=== PATIENT | female | born 1990 | race Two or more races ===

== ENCOUNTER 2023-12-25 08:10 | Inpatient (IN) | payer OTHER ==
[~2023-12-25] VITALS: Ht 157.5 cm; Wt 73.0 kg
[2023-12-25] MEDS ORDERED: AMPICILLIN SODIUM 2,000 MG VIAL ONE (09:08)
[2023-12-25] MEDS ORDERED: CEFAZOLIN SODIUM 1,000 MG VIAL ONE (09:20)
[2023-12-25] MEDS ORDERED: CEFAZOLIN SODIUM 1,000 MG VIAL IV SCH (09:20)
[2023-12-25] MEDS ORDERED: PRENATABS RX T1 EACH PO (09:34)
[2023-12-25 09:38] LABS: PH,URINE 6.5 (5.0-8.0); URINE APPEARANCE Cloudy; URINE BILIRRUBIN Negative (NEGATIVE); URINE BLOOD NHT; URINE COLOR Dark Yellow; URINE GLUCOSE Negative (NEGATIVE); URINE KETONE Trace (NEGATIVE); URINE LEUKOCYTE Trace; URINE NITRATE Negative; URINE PROTEIN Trace (NEGATIVE)
[2023-12-25 09:39] LABS: HEMATOCRIT 29.6 % (36.0-45.00); HEMOGLOBIN 10.3 g/dL (12.0-15.00); MEAN CELL VOLUME 92.6 fL (80.00-100.00); MEAN CORPUSCULAR HEMOGLOBIN 32.2 pg (27.00-32.0); MEAN CORPUSCULAR HGB CONC 34.8 g/dl (32.0-36.0); PLATELET COUNT 247 K/uL (150-450); RED BLOOD COUNT 3.19 M/uL (4.00-6.00); RED CELL DISTRIBUTION WIDTH 16.2 % (11.5-14.5)
[2023-12-25 09:41] LABS: URINE BACTERIA 726.8 uL (0.0-1933); URINE EPITHELIAL CELLS 135.7 uL (0.0-38.8); URINE RBC 94.3 uL (0.0-20.8); URINE WBC 77.9 uL (0.0-23.2)
[2023-12-25 09:57] LABS: URINE CAST 0.61 uL (0.0-1.40)
[2023-12-25 10:18] LABS: INR 0.94; PROTHROMBIN TIME 9.9 SECONDS (9.0-11.5)
[2023-12-25] MEDS ORDERED: OXYTOCIN 20 UNITS/500ML RL PIGGYBAG IV ONE (11:36)
[2023-12-25] MEDS ORDERED: OXYTOCIN 20 UNITS/500ML RL PIGGYBAG IV SCH (11:45)
[2023-12-25] MEDS ORDERED: MEPERIDINE HCL/PF 50 MG/ML VIAL IV STA (16:01)
[2023-12-25] MEDS ORDERED: PROMETHAZINE HCL 25 MG/ML AMPUL IV STA (16:02)
[2023-12-25] MEDS ORDERED: OXYTOCIN 20 UNITS/1000ML RL PIGGYBAG IV ONE (16:05)
[2023-12-25] MEDS ORDERED: ERYTHROMYCIN BASE 1 GM TUBE OP ONE ×2 (16:05→18:48)
[2023-12-25] MEDS ORDERED: CHLORHEXIDINE GLUCONATE 120 ML BOTTLE TOP ONE (16:06)
[2023-12-25] MEDS ORDERED: PROMETHAZINE HCL 25 MG/ML AMPUL ONE (16:06)
[2023-12-25] MEDS ORDERED: OXYTOCIN 10 UNITS/ML VIAL ONE ×2 (18:48→22:34)
[2023-12-25] MEDS ORDERED: KETOROLAC TROMETHAMINE 60 MG VIAL IM STA (20:52)
[2023-12-25] MEDS ORDERED: RINGERS SOLUTION,LACTATED 1,000 ML IV SCH (21:00)
[2023-12-25] MEDS ORDERED: PROMETHAZINE HCL 25 MG/ML AMPUL IM PRN (21:00)
[2023-12-25] MEDS ORDERED: ERYTHROMYCIN BASE 1 GM TUBE OP SCH (21:00)
[2023-12-25] MEDS ORDERED: MEPERIDINE HCL/PF 50 MG/ML VIAL IM PRN (21:00)
[2023-12-25] MEDS ORDERED: CHLORHEXIDINE GLUCONATE 120 ML BOTTLE TOP SCH (21:00)
[2023-12-25] MEDS ORDERED: OXYTOCIN 1,000 ML IV SCH (21:00)
[2023-12-25 21:53] LABS: ABG PH 7.285 (7.35-7.45); ABG pCO2 44.8 mmHg (35-45); BASE EXCESS -5.8 mmol/l; BICARBONATE 20.8 mmol/l (23-25); SaO2 46.1 %; Tco2 22.2 mmol/l
[2023-12-25 22:01] LABS: ABG PO2 29.6 mmHg (80-100); o2 21 %
[2023-12-25] MEDS ORDERED: MORPHINE SULFATE 4 MG/ML VIAL IV ONE (22:15)
[2023-12-25] MEDS ORDERED: KETOROLAC TROMETHAMINE 60 MG VIAL IM ONE (22:34)
[2023-12-26 01:51] LABS: HEMATOCRIT 28.1 % (36.0-45.00); HEMOGLOBIN 9.5 g/dL (12.0-15.00); MEAN CELL VOLUME 93.3 fL (80.00-100.00); MEAN CORPUSCULAR HEMOGLOBIN 31.7 pg (27.00-32.0); PLATELET COUNT 230 K/uL (150-450); RED BLOOD COUNT 3.01 M/uL (4.00-6.00); RED CELL DISTRIBUTION WIDTH 15.7 % (11.5-14.5)
[2023-12-26] MEDS ORDERED: OxyCODONE HCL/APAP UD (PERCOCET) PO PRN (09:00)
[2023-12-26] MEDS ORDERED: FERROUS SULFATE 325 MG TABLET.EC PO SCH (15:22)
[2023-12-26] MEDS ORDERED: IBUprofen 600 MG TABLET PO PRN (15:45)
[2023-12-26] MEDS ORDERED: PNV,CALCIUM 72/IRON/FOLIC ACID 1 TAB TABLET PO SCH (17:00)
[2023-12-26] MEDS ORDERED: AMOXICILLIN/POTASSIUM CLAV 500 MG TABLET PO SCH (17:00)
== END 2023-12-27 15:40 | disposition home or self-care (01) | DRG 788 ==
LOC: LDR 08:10 → O/R 19:50 → OB/GYN 21:06
PROVIDERS: ADMIT Obstetrics & Gynecology; ATTEND Obstetrics & Gynecology
PROC: 4A1HXCZ Monitoring of Products of Conception, Cardiac Rate, External Approach (ICD-10-PCS; 2023-12-25)
PROC: 10D00Z1 Extraction of Products of Conception, Low, Open Approach (ICD-10-PCS; principal; 2023-12-25 23:00)
DX: O62.1 Secondary uterine inertia (principal); O36.63X0 Maternal care for excessive fetal growth, third trimester, not applicable or unspecified; Z3A.39 39 weeks gestation of pregnancy; Z37.0 Single live birth; Z20.822 Contact with and (suspected) exposure to COVID-19

== ENCOUNTER 2024-10-27 13:40 | Inpatient (IN) | payer OTHER ==
[~2024-10-27] VITALS: Ht 152.4 cm; Wt 82.1 kg
[~2024-10-27 13:40] MED LIST: PRENATABS RX T1 EACH PO
[2024-10-27 14:02] LABS: BASO % 0.3 % (0.1-1.2); EOS # 0.14 (0.04-0.54); EOS % 2.2 % (0.7-7.0); HEMATOCRIT 29.6 % (34.1-44.9); HEMOGLOBIN 9.7 g/dL (11.2-15.7); LYMPH # 1.09 (1.18-3.74); LYMPH % 17.2 % (19.3-53.1); MEAN CORPUSCULAR HEMOGLOBIN 28.9 pg (25.6-32.2); MONO % 7.9 % (4.7-12.5); NEUT # 4.56 (1.56-6.13); NEUT % 72.1 % (34.0-71.1); PLATELET COUNT 244 K/uL (163-369); RED BLOOD COUNT 3.36 M/uL (3.93-5.22); RED CELL DISTRIBUTION WIDTH 19.2 % (11.6-14.4)
[2024-10-27 14:25] LABS: PH,URINE 5.5 (5.0-8.0); URINE APPEARANCE Cloudy; URINE BILIRRUBIN Negative (NEGATIVE); URINE BLOOD Negative; URINE COLOR Yellow; URINE GLUCOSE Negative (NEGATIVE); URINE KETONE Negative (NEGATIVE); URINE LEUKOCYTE Trace; URINE NITRATE Negative; URINE PROTEIN Trace (NEGATIVE); URINE UROBILINOGEN 0.2 E.U./dl
[2024-10-27 14:29] LABS: URINE BACTERIA 764.8 uL (0.0-1933); URINE RBC 7.2 uL (0.0-20.8); URINE WBC 36.5 uL (0.0-23.2)
[2024-10-27 14:45] LABS: INR 0.95; PARTIAL THROMBOPLASTIN TIME 24.3 SECONDS (22.0-34.0); PROTHROMBIN TIME 10.4 SECONDS (9.0-11.5)
[2024-10-27 15:08] LABS: RH POSITIVE
[2024-10-27 15:37] LABS: URINE CAST 0.58 uL (0.0-1.40); URINE EPITHELIAL CELLS > 201.7 uL (0.0-38.8); URINE MUCUS SCANT
[2024-10-28 10:04] VITALS: BP 111/68
[2024-10-28] MEDS ORDERED: PRENATAL + DHA1 EAC1 PO (10:16)
[2024-10-28] MEDS ORDERED: IRON325 MG PO (10:17)
[2024-10-28 10:18] VITALS: BP 111/68
[2024-10-28] MEDS ORDERED: RINGERS SOLUTION,LACTATED 1,000 ML IV SCH ×2 (11:15→16:30)
[2024-10-28 11:41] VITALS: BP 97/64; O2SAT 100
[2024-10-28] MEDS ORDERED: OXYTOCIN 10 UNITS/ML VIAL ONE ×2 (12:42→18:54)
[2024-10-28] MEDS ORDERED: ERYTHROMYCIN BASE OPHT 1GM EACH TUBE OP ONE (12:42)
[2024-10-28] MEDS ORDERED: MORPHINE SULFATE 4 MG/ML VIAL IV ONE ×2 (16:15→17:15)
[2024-10-28] MEDS ORDERED: KETOROLAC TROMETHAMINE 60 MG VIAL IM STA (16:27)
[2024-10-28] MEDS ORDERED: OXYTOCIN 1,000 ML IV SCH (16:30)
[2024-10-28] MEDS ORDERED: CHLORHEXIDINE GLUCONATE 120 ML BOTTLE TP SCH (16:30)
[2024-10-28] MEDS ORDERED: ONDANSETRON HCL 2 MG/ML VIAL IV ONE (17:30)
[2024-10-28] MEDS ORDERED: ONDANSETRON HCL 2 MG/ML VIAL ONE (17:31)
[2024-10-28] MEDS ORDERED: KETOROLAC TROMETHAMINE 60 MG VIAL IM ONE ×2 (18:22→18:40)
[2024-10-28] MEDS ORDERED: SUGAMMADEX SODIUM 200 MG/2 ML VIAL IV ONE (19:25)
[2024-10-28 19:27] VITALS: BP 114/71
[2024-10-28 19:41] LABS: BASO % 0.2 % (0.1-1.2); EOS # 0.07 (0.04-0.54); EOS % 0.8 % (0.7-7.0); HEMATOCRIT 27.4 % (34.1-44.9); LYMPH # 0.82 (1.18-3.74); LYMPH % 8.9 % (19.3-53.1); MEAN CORPUSCULAR HEMOGLOBIN 28.8 pg (25.6-32.2); MONO # 0.48 (0.24-0.82); MONO % 5.2 % (4.7-12.5); NEUT # 7.81 (1.56-6.13); NEUT % 84.6 % (34.0-71.1); PLATELET COUNT 219 K/uL (163-369); RED BLOOD COUNT 3.13 M/uL (3.93-5.22); RED CELL DISTRIBUTION WIDTH 19.3 % (11.6-14.4)
[2024-10-28] MEDS ORDERED: MORPHINE SULFATE 4 MG/ML VIAL IV PRN (21:30)
[2024-10-29 00:34] VITALS: BP 104/64
[2024-10-29 07:58] VITALS: BP 98/63
[2024-10-29] MEDS ORDERED: ACETAMINOPHEN WITH CODEINE 1 UDTAB TABLET PO PRN (09:00)
[2024-10-29 16:00] VITALS: BP 96/62; O2SAT 97
[2024-10-29 20:00] VITALS: BP 99/65
[2024-10-30 01:15] VITALS: BP 106/68
[2024-10-30 09:11] VITALS: BP 116/74
== END 2024-10-30 16:20 | disposition home or self-care (01) | DRG 785 ==
LOC: OB/GYN 10-28 10:40 → LDR 10-28 10:40 → OB/GYN 10-28 13:10 → O/R 10-28 15:25 → OB/GYN 10-28 17:52
PROVIDERS: ADMIT Obstetrics & Gynecology; ATTEND Obstetrics & Gynecology
PROC: 0UB70ZZ Excision of Bilateral Fallopian Tubes, Open Approach (ICD-10-PCS; 2024-10-28)
PROC: 4A1HXCZ Monitoring of Products of Conception, Cardiac Rate, External Approach (ICD-10-PCS; 2024-10-28)
PROC: 10D00Z1 Extraction of Products of Conception, Low, Open Approach (ICD-10-PCS; principal; 2024-10-28 13:15)
DX: O34.211 Maternal care for low transverse scar from previous cesarean delivery (principal); Z30.2 Encounter for sterilization; Z37.0 Single live birth; Z20.822 Contact with and (suspected) exposure to COVID-19; Z3A.39 39 weeks gestation of pregnancy